=== PATIENT | male | born 1955 | race African-American/Black ===

== ENCOUNTER 2020-08-29 19:57 | Emergency (ER) | payer OTHER ==
[~2020-08-29] VITALS: Ht 177.8 cm; Wt 93.4 kg
[2020-08-29] MEDS ORDERED: LOSARTAN-HCTZ1 EAC3 PO (22:32)
[2020-08-29] MEDS ORDERED: FLOMAX0.4 MG PO (22:33)
[2020-08-29 22:48] LABS: URINE BILIRUBIN NEGATIVE (Negative); URINE BLOOD TRACE (Negative); URINE CLARITY CLEAR; URINE COLOR YELLOW; URINE GLUCOSE-RANDOM* NEGATIVE (Negative); URINE KETONES NEGATIVE (Negative); URINE NITRITE-REFLEX NEGATIVE (Negative); URINE PROTEIN (DIPSTICK) NEGATIVE (Negative); URINE SPECIFIC GRAVITY >= 1.030 (1.005-1.035); URINE UROBILINOGEN 0.2 E.U./dl (0.2-1.0)
[2020-08-29 22:52] LABS: URINE LEUKOCYTES-REFLEX 1+ (Negative)
[2020-08-29 23:04] LABS: BACTERIA-REFLEX 1-9 Few /HPF (None Seen); CASTS None Seen /LPF (None Seen); CRYSTALS None Seen /LPF (None Seen); MUCUS >6 Heavy strn/LPF (None Seen); SQUAMOUS 0-3 Few /LPF (0-3); URINE RBC 3-10 Few /HPF (0-2); URINE WBC-REFLEX 6-15 Few /HPF (0-5)
[2020-08-30] MEDS ORDERED: MIRALAX119 GM PO (00:50)
[2020-08-30 01:18] VITALS: BP 136/88
== END 2020-08-30 01:19 | disposition home or self-care (01) ==
LOC: ER 19:57
PROVIDERS: Emergency Medicine
DX: K59.00 Constipation, unspecified (principal); I10 Essential (primary) hypertension; Z79.899 Other long term (current) drug therapy